=== PATIENT | male | born 1955 | race Caucasian/White ===

== ENCOUNTER → 2016-09-21 | Outpatient (CLI) | payer BC ==
[~2016-09-21] MED LIST: ATOR10TA82 PO; AZAT50TA17 PO; CALC-214 PO; CALC-445 PO; FLUOCINONIDE TOP; KETOCONAZOLE TOP; LEVO137T3 PO; LEVO1TAB PO; OXYC-57 PO; PRED-301 PO; TADA10TA PO; cholesterol med
[2016-09-21 11:30] LABS: THYROID STIMULATING HORMONE 0.476 uIu/ml (0.300-4.500)
[2016-09-22 14:38] LABS: THYROGLOBULIN 0.2 NG/ML (2.8-40.9)
== END | disposition home or self-care (01) ==
LOC: C.LAB1850 09:07
PROVIDERS: ATTEND Internal Medicine Endocrinology, Diabetes & Metabolism
DX: D23.9 Other benign neoplasm of skin, unspecified (principal); C73 Malignant neoplasm of thyroid gland

== ENCOUNTER → 2016-11-16 | Outpatient (CLI) | payer BC ==
[2016-11-16 11:43] LABS: BLOOD UREA NITROGEN 25 mg/dl (7-18); BUN/CREATININE RATIO 19.2 (10-20); CARBON DIOXIDE 29 mmol/L (21-32); CHLORIDE 107 mmol/L (98-107); GLUCOSE 91 mg/dl (70-99); SODIUM 143 mmol/L (136-145)
[2016-11-16 11:47] LABS: CALCIUM 8.4 mg/dl (8.5-10.1)
[2016-11-16 11:48] LABS: CHOLESTEROL 181 mg/dl (0-200); CHOLESTEROL/HDL RATIO 3.4; HDL CHOLESTEROL 54 mg/dl; LDL CHOLESTEROL CALCULATED 113 mg/dl; TRIGLYCERIDES 72 mg/dl (0-150); VERY LOW DENSITY LIPOPROT CALC 14 mg/dl
[2016-11-16 12:17] LABS: ESTIMATED AVERAGE GLUCOSE 108 mg/dl; HA1C FLAG Normal (Normal)
== END | disposition home or self-care (01) ==
LOC: C.LABBC 08:43
PROVIDERS: ATTEND Family Medicine
DX: N40.1 Benign prostatic hyperplasia with lower urinary tract symptoms (principal); R73.03 Prediabetes; K75.4 Autoimmune hepatitis

== ENCOUNTER → 2017-01-24 | Outpatient (CLI) | payer BC ==
[~2017-01-24] MED LIST changes: -ATOR10TA82 PO; -CALC-214 PO; -FLUOCINONIDE TOP; -KETOCONAZOLE TOP; -LEVO137T3 PO; -OXYC-57 PO; -TADA10TA PO; -cholesterol med
== END | disposition home or self-care (01) ==
LOC: C.PATHSPEC 17:13
PROVIDERS: ATTEND Plastic Surgery
DX: C44.629 Squamous cell carcinoma of skin of left upper limb, including shoulder (principal)

== ENCOUNTER → 2017-04-16 | Outpatient (CLI) | payer BC ==
--- NOTE | 2017-04-16 14:45 | DIAGNOSTIC IMAGING REPORT ---
CHEST 2 VIEWS ROUTINE HISTORY: 62 years-old Male Acute bronchitis acute bronchitis. Initial exam COMPARISON: Chest CT 06/03/2010 TECHNIQUE: PA and lateral views of the chest FINDINGS: Cardiomediastinal and hilar silhouettes are within normal limits. Mild right hemidiaphragmatic elevation with loops of colon interposed beneath the right hemidiaphragm. Prior cholecystectomy. Bones of the chest appear grossly intact. IMPRESSION: No acute cardiopulmonary process. The above report was generated using voice recognition software. It may contain grammatical, syntax or spelling errors. Electronically signed by: Jhon Medina M.D. 04/16/2017 2:44 PM Dictated Date/Time: 04/16/2017 2:42 PM
== END | disposition home or self-care (01) ==
LOC: C.LABPVFM 14:21
PROVIDERS: ATTEND Family Medicine
DX: J20.9 Acute bronchitis, unspecified (principal)

== ENCOUNTER → 2017-05-23 | Outpatient (CLI) | payer BC ==
[~2017-05-23] MED LIST changes: +ATOR10TA82 PO; +CALC-214 PO; -CALC-445 PO; +FLUOCINONIDE TOP; +KETOCONAZOLE TOP; +LEVO137T3 PO; -LEVO1TAB PO; +TADA10TA PO
--- NOTE | 2017-05-23 08:35 | DIAGNOSTIC IMAGING REPORT ---
(BARIUM SWALLOW) ESOPHAGUS CLINICAL HISTORY: Difficulty swallowing. COMPARISON STUDY: None. FLUOROSCOPY TIME: 1.1 minutes. 24 images submitted. FINDINGS: The patient swallowed barium without difficulty. The esophagus is normal in course, caliber, motility. The contours of the hypopharynx are within normal limits. No hiatus hernia. No gastroesophageal reflux. The barium tablet passed without difficulty. IMPRESSION: Normal barium swallow. Electronically signed by: Vlad Collins M.D. 05/23/2017 8:33 AM Dictated Date/Time: 05/23/2017 8:32 AM
== END | disposition home or self-care (01) ==
LOC: C.RAD 07:22
DX: K21.9 Gastro-esophageal reflux disease without esophagitis (principal)

== ENCOUNTER 2017-05-29 08:59 | Day surgery (SDC) | payer BC ==
[2017-05-14 15:16] VITALS: BMI 27.0
--- NOTE | 2017-05-14 15:48 | PAT Medication Instructions ---
Service Date May 14, 2017. Current Home Medication List Atorvastatin (Lipitor), 10 MG PO QPM Azathioprine (Imuran), 3 TAB PO QAM Calcium W/ Magnesium (Calcium & Magnesium), Unknown Dose PO QAM Levothyroxine Sodium (Levothyroxine Sodium), 1 TAB PO QAM Prednisone (Prednisone), 5 MG PO QAM Tadalafil (Cialis), 10 MG PO UD [Fluocinonide ext ], 1 APPLN TOP UD PRN for prn [Ketoconazole], 2 % TOP UD Medication Instructions For Your Scheduled Surgery - Hold the following medications 24 hours prior to surgery: [Fluocinonide ext ], 1 APPLN TOP UD PRN for prn [Ketoconazole], 2 % TOP UD - Hold the following medications the morning of surgery: Calcium W/ Magnesium (Calcium & Magnesium), Unknown Dose PO QAM Tadalafil (Cialis), 10 MG PO UD - Take the following medications the morning of surgery with a sip of water: Prednisone (Prednisone), 5 MG PO QAM Levothyroxine Sodium (Levothyroxine Sodium), 1 TAB PO QAM Azathioprine (Imuran), 3 TAB PO QAM - Take the following medications as scheduled the night before surgery: Atorvastatin (Lipitor), 10 MG PO QPM Tadalafil (Cialis), 10 MG PO UD (if needed) If you have any questions please call us at [phone] or [phone] or [phone]
[2017-05-14 16:20] LABS: BASO % 0.4 %; BASO ABS # 0.02 K/uL (0-0.2); COMPLETE YES; EOS % 0.6 %; HEMATOCRIT 41.4 % (42-52); IG% 0.2 %; LYMPH % 12.7 %; LYMPH ABS # 0.68 K/uL (1.2-3.4); MEAN CELL VOLUME 102.7 fL (80-100); MEAN CORPUSCULAR HEMOGLOBIN 35.5 pg (25-34); MEAN CORPUSCULAR HGB CONC 34.5 g/dl (32-36); MONO % 6.4 %; NEUT % 79.7 %; PLATELET COUNT 225 K/uL (130-400); RED BLOOD COUNT 4.03 M/uL (4.7-6.1); WHITE BLOOD COUNT 5.35 K/uL (4.8-10.8)
[2017-05-14 16:37] LABS: BUN/CREATININE RATIO 16.9 (10-20); CALCIUM 8.7 mg/dl (8.5-10.1); CREATININE 1.24 mg/dl (0.60-1.40); POTASSIUM 4.6 mmol/L (3.5-5.1)
[~2017-05-29] VITALS: Ht 175.3 cm; Wt 84.5 kg
[~2017-05-29 08:59] MED LIST changes: +LACTATED RINGER'S 1000ML 1,000 ML IV SCH
[2017-05-29 09:46] VITALS: BP 134/65; PULSE 68; TEMP 36.6; O2SAT 93; Ht 175.3 cm; Wt 84.5 kg
--- NOTE | 2017-05-29 10:08 | History & Physical Bridge Note ---
H&P Re-Evaluation Bridge Note: I have examined the patient, reviewed the History & Physical and in the interval since the performance of the History & Physical I have noted the following changes of clinical significance: No changes noted all questions answered, pt marked, states send SO home
[2017-05-29] MEDS ORDERED: FENTANYL CITRATE INJ 50 MCG/1 ML 2 ML VIAL ONE ×3 (10:14→11:45)
[2017-05-29] MEDS ORDERED: MIDAZOLAM HCL 1 MG/ML 2ML VIAL ONE ×2 (10:14→10:23)
[2017-05-29] MEDS ORDERED: DEXAMETHASONE SOD INJ 4 MG/ML VIAL ONE (10:23)
[2017-05-29] MEDS ORDERED: ONDANSETRON INJ 2 MG/ML 2 ML VIAL ONE (10:23)
[2017-05-29] MEDS ORDERED: LIDOCAINE HCL 2% 2 ML VIAL (20MG/ML) ONE (10:23)
[2017-05-29] MEDS ORDERED: PROPOFOL IV EMULSION 10 MG/ML 20 ML VIAL IV ONE (10:23)
[2017-05-29] MEDS ORDERED: BUPIVACAINE 0.5 % 5 MG/1 ML MPF 30ML VIAL ONE (10:47)
[2017-05-29] MEDS ORDERED: BACITRACIN 50000 UNIT VIAL ONE (10:49)
[2017-05-29] MEDS ORDERED: OXYC-57 PO (10:56)
--- NOTE | 2017-05-29 10:58 | Discharge Instructions ---
Discharge Instructions Date of Service May 29, 2017. Visit Reason for Visit: Umbilical Hernia Discharge Discharge Diagnosis / Problem: repair of hernia Discharge Goals Goal(s): Decrease discomfort Activity Recommendations Activity Limitations: as noted below Lifting Limitations: no more than 10 pounds Shower/Bathe: keep incision dry (for 2 days, remove bandage on Thurs to shower) Driving or Machine Use: resume 3 days after discharge Anesthesia . Post Anesthesia Instructions: If you have had General Anesthesia or IV Sedation: * Do not drive today. * Resume driving when surgeon permits. * Do not make important decisions or sign legal documents today. * Call surgeon for: 1. Temperature elevations greater than 101 degrees F. 2. Uncontrollable pain. 3. Excessive bleeding. 4. Persistent nausea and vomiting. 5. Medication intolerance (nausea, vomiting or rash). * For nausea and vomiting use only clear liquids such as: tea, soda, bouillon until nausea subsides, then gradually increase diet as tolerated. * If you have any concerns or questions, call your surgeon's office. If physician is unavailable and it is an emergency, call 911 or go to the nearest emergency room. . Instructions / Follow-Up Instructions / Follow-Up Dr. Wilhelm in 1 week, call [phone] if you do not already have an appt or have any questions Diet Recommendations Recommended Home Diet: no limitations Pending Studies Studies pending at discharge: no Medical Emergencies . Who to Call and When: Medical Emergencies: If at any time you feel your situation is an emergency, please call 911 immediately. . Non-Emergent Contact Non-Emergency issues call your: Surgeon Call Non-Emergent contact if: you have a fever, temperature is above 101.5, your pain is not controlled, you have any medication questions . . "Provider Documentation" section prepared by Choco Barraza. . [place] Drug Monitoring Program Search Results: no issues identified
[2017-05-29] MEDS ORDERED: PHENYLEPHRINE 100MCG/ML 5ML SYR ONE (11:22)
[2017-05-29] MEDS ORDERED: CEFAZOLIN SOD 1 GM VIAL ONE (11:22)
[2017-05-29] MEDS ORDERED: EpHEDrine SULFATE 50MG/5ML SYR ONE (11:22)
--- NOTE | 2017-05-29 12:00 | [facility] Operative Report ---
Operative Report Operative Date May 29, 2017. Pre-Operative Diagnosis Umbilical Hernia Post-Operative Diagnosis Incarcerated Umbilical Hernia Procedure(s) Performed Open Umbilical Hernia Repair, With Marlex Patch and Plug resection incarcerated tissue Surgeon Dr. Qasim Wilhelm Recreation Therapist Surgeon(s) Choco Barraza PA-C Estimated Blood Loss 1.5ml Findings defect elliot 2 cm with incarcerated fatty tissue Specimens A.) Incarcerated Umbilical Hernia Contents Description of Procedure OR summary dictated confirmation number [id number] I attest to the content of the Intraoperative Record and any orders documented therein. Any exceptions are noted below.
[2017-05-29] MEDS ORDERED: LACTATED RINGER'S 1000ML 1,000 ML IV SCH (12:02)
[2017-05-29] MEDS ORDERED: PROMETHAZINE HCL INJ 12.5 MG in SODIUM CHLORIDE 0.9% 50ML 50 ML IV PRN (12:15)
[2017-05-29] MEDS ORDERED: NALOXONE HCL 0.4 MG/1 ML VIAL/CARP IV PRN (12:15)
[2017-05-29] MEDS ORDERED: OXYCODONE/ACETAMINOPHEN 5-325 TAB PO PRN (12:15)
[2017-05-29] MEDS ORDERED: LABETALOL HCL IV 5 MG/ML 20ML IV PRN (12:15)
[2017-05-29] MEDS ORDERED: MoRPHine SULFATE 4 MG/ML 1 ML CARP\\VIAL IV PRN (12:15)
[2017-05-29] MEDS ORDERED: ATROPINE SULFATE 0.1 MG/ML 5ML SYR IV PRN ×2 (12:15)
[2017-05-29] MEDS ORDERED: EpHEDrine SULFATE INJ 50 MG/ML AMP IV PRN ×2 (12:15)
[2017-05-29] MEDS ORDERED: FENTANYL CITRATE INJ 50 MCG/1 ML 2 ML VIAL IV PRN (12:15)
[2017-05-29] MEDS ORDERED: FLUMAZENIL 0.1 MG/1 ML 10 ML VIAL IV PRN (12:15)
[2017-05-29] MEDS ORDERED: ONDANSETRON INJ 2 MG/ML 2 ML VIAL IV PRN ×2 (12:15)
--- NOTE | 2017-05-29 12:28 | OPERATIVE REPORT ---
DATE OF OPERATION: 05/29/2017 PREOPERATIVE DIAGNOSIS: Incarcerated umbilical hernia. POSTOPERATIVE DIAGNOSIS: Same with incarcerated fatty tissue defect approximately 2 cm. PROCEDURE: Open repair of incarcerated umbilical hernia with Marlex mesh and plug and resection of incarcerated tissue. SURGEON: Dr. Wilhelm. BELT LOOP MACHINE OPERATOR: Jarvis Barraza PA-C. OPERATION AND FINDINGS: SUMMARY: The patient was brought into the operating room theater. The abdomen was properly shaved and prepped with Betadine scrubbing solution and properly draped. Systemic antibiotics were given. 1% Xylocaine without epinephrine was used to infiltrate just to the left of the umbilicus in the midline fashion after achieving preemptive analgesia. An incision was made about 2 inches long to the left of the umbilicus in the midline, deepened through subcutaneous tissue. We then were able to immediately identify the hernial sac which we had the contents of fatty tissue going to the umbilical area. We freed this up sharp dissection completely freeing the umbilical skin away from the defect and the sac. Once we had scored this all the way circumferentially down to fascia, this was a multilobulated type fatty tissue protruding through. Once we were done and scored the abdominal wall fascia delineated defect was about 2 cm. We then at this point really were unable to return this all preperitoneally, it was the size of a golf ball coming through therefore we resected its base between hemostats ligated with 2-0 silk making sure hemostasis was satisfactory, the specimen was removed. At this point we then outlined further defect in the fascia, which was about 2 cm. We made sure that we are not in the peritoneum. We checked hemostasis of the tissue line that we had resected which appeared satisfactory. Once we had scored this and I was able to put a finger partially away in the area we were free from the underlying surface. No other palpable defect to the right. At this point, I brought in a sheet of Marlex mesh, made 2 circular rings, 1 proximally about 3.5 cm, the other one about 2 cm conjoined the smaller one centrally to the larger one and then introduced this in the preperitoneal area as a plug, then sutured the remaining larger sheet onto the side of the hernia, interrupted about 4-5 times taking bites also of the plug also. This was done with 2-0 nylon. Once this had been completed, then we overlapped the excess larger sheet of Marlex onto the abdominal wall fascia overlapping the defect about 1 cm or more circumferentially. Hemostasis was satisfactory. The repair appeared to be solid. At this point, we used more local anesthetic in the abdominal wall and the wound was closed in multiple layer 2-0 and 3-0 Dexon and Monocryl and javier. Dressing was applied. The procedure was tolerated well by the patient. Estimated blood loss approximately 1.5 mL. The patient was taken to recovery room in good condition. I attest to the content of the Intraoperative Record and any orders documented therein. Any exceptions are noted below. MTDD
--- NOTE | 2017-05-29 12:36 | Anesthesiology Progress Note ---
Anesthesia Post Op Note Date & Time May 29, 2017 at 12:36 Vital Signs Pain Intensity: 0 Vital Signs Past 12 Hours Date Time Temp Pulse Resp B/P (MAP) Pulse Ox O2 Delivery O2 Flow Rate FiO2 05/29/17 12:26 78 16 05/29/17 12:26 77 16 94 05/29/17 12:25 109/77 05/29/17 12:23 36.7 83 16 109/77 (90) 94 Room Air 05/29/17 12:21 76 13 05/29/17 12:21 75 13 97 05/29/17 12:20 121/75 05/29/17 12:16 74 15 05/29/17 12:16 74 15 98 05/29/17 12:15 120/72 05/29/17 12:13 74 24 05/29/17 12:13 72 24 98 05/29/17 12:10 110/76 05/29/17 12:08 80 18 99 05/29/17 12:08 77 18 05/29/17 12:06 122/73 05/29/17 12:04 130/76 05/29/17 12:03 81 17 05/29/17 12:03 81 17 97 05/29/17 12:03 36.5 82 16 130/76 (86) 96 Oxymask 10 05/29/17 09:46 36.6 68 20 134/65 (88) 93 Room Air Notes Mental Status: alert / awake / arousable, participated in evaluation Pt Amnestic to Procedure: Yes Nausea / Vomiting: adequately controlled Pain: adequately controlled Airway Patency, RR, SpO2: stable & adequate BP & HR: stable & adequate Hydration State: stable & adequate Anesthetic Complications: no major complications apparent
[2017-05-29 12:47] VITALS: BP 112/69; PULSE 78; TEMP 36.4; O2SAT 93
[2017-05-29 13:17] VITALS: BP 121/69; PULSE 80; TEMP 36.4; O2SAT 96
[2017-05-29 13:50] VITALS: BP 128/82; PULSE 91; TEMP 36.6; O2SAT 96
== END 2017-05-29 13:55 | disposition home or self-care (01) ==
LOC: C.ACU 08:59
PROVIDERS: ATTEND Surgery
DX: K42.0 Umbilical hernia with obstruction, without gangrene (principal); D64.9 Anemia, unspecified; K75.4 Autoimmune hepatitis; E78.5 Hyperlipidemia, unspecified; E83.51 Hypocalcemia; E89.0 Postprocedural hypothyroidism; K21.9 Gastro-esophageal reflux disease without esophagitis; D47.2 Monoclonal gammopathy; G56.21 Lesion of ulnar nerve, right upper limb; N40.1 Benign prostatic hyperplasia with lower urinary tract symptoms; N18.3 Chronic kidney disease, stage 3 (moderate); N52.9 Male erectile dysfunction, unspecified; H40.9 Unspecified glaucoma; Z79.899 Other long term (current) drug therapy

== ENCOUNTER → 2017-07-26 | Outpatient (CLI) | payer OTHER ==
[~2017-07-26] MED LIST changes: -LACTATED RINGER'S 1000ML 1,000 ML IV SCH; +OXYC-57 PO
== END | disposition home or self-care (01) ==
LOC: C.PATHSPEC 12:48
PROVIDERS: ATTEND Physician Assistant
DX: C44.612 Basal cell carcinoma of skin of right upper limb, including shoulder (principal)

== ENCOUNTER → 2017-10-04 | Outpatient (CLI) | payer OTHER | END | disposition home or self-care (01) | LOC: C.LAB1850 15:33 | PROVIDERS: ATTEND Internal Medicine Endocrinology, Diabetes & Metabolism | DX: E89.0 Postprocedural hypothyroidism (principal) ==